=== PATIENT | female | born 1980 | race Caucasian/White ===

== ENCOUNTER → 2018-10-15 10:10 | Outpatient (CLI) | payer SELFPAY ==
[2018-10-15 13:37] LABS: Thyroid Stim Hormone (TSH) 4.73 uIU/mL (0.358-3.74)
[2018-10-15 18:40] LABS: T4 Free Direct 0.69 ng/dL (0.76-1.46)
[2018-10-17 15:51] LABS: HPV Reflexed? NOT INDICATED
== END ==
PROVIDERS: Visit Provider Obstetrics & Gynecology
DX: Z12.4 Encounter for screening for malignant neoplasm of cervix (principal); E04.9 Nontoxic goiter, unspecified; R94.6 Abnormal results of thyroid function studies
CPT/HCPCS: 36415; 84439; 84443; 88175; G0145

== ENCOUNTER → 2018-10-21 12:57 | Outpatient (CLI) | payer SELFPAY ==
--- NOTE | 2018-10-21 13:01 | US_ITS ---
STUDY: THYROID ULTRASOUND REASON FOR EXAM: Female, 37 years old. Elevated TSH TECHNIQUE: Ultrasound evaluation of the thyroid was performed with real-time and static partida-scale imaging. COMPARISON: None. FINDINGS: RIGHT LOBE: The right lobe of the thyroid gland measures 5.3 x 2.6 x 2 cm. There is a heterogeneous echotexture. There are no demonstrated solid, cystic or complex lesions. LEFT LOBE: The left lobe of the thyroid gland measures 5.1 x 2 x 1.8 cm. There is a heterogeneous echotexture. There are no demonstrated solid, cystic or complex lesions. ISTHMUS: The isthmus measures 0.6 cm. The regional lymph nodes are normal. Bilateral thyroid appears hypervascular. US/Thyroid IMPRESSION: Enlarged heterogeneous hypervascular thyroid. Correlate with laboratory values for thyroiditis. No thyroid nodules or mass lesions identified. Electronically Signed: Byron Stiles, at 6:56 EDT Tel , Service support ,
== END ==
PROVIDERS: Referring Provider Obstetrics & Gynecology; Visit Provider Obstetrics & Gynecology
DX: E04.9 Nontoxic goiter, unspecified (principal); R94.6 Abnormal results of thyroid function studies
CPT/HCPCS: 76536